=== PATIENT | male | born 1960 | race African-American/Black ===

== ENCOUNTER 2017-05-02 22:19 | Emergency (ER) | payer OTHER ==
[2017-05-02] MEDS: IBUPROFEN 600 MG TABLET. PO ×2 (22:53)
[2017-05-02] MEDS: CYCLOBENZAPRINE 10 MG TABLET. PO ×2 (22:53)
== END 2017-05-02 23:51 | disposition home or self-care (01) ==
LOC: ER 22:19
DX: S39.012A Strain of muscle, fascia and tendon of lower back, initial encounter (principal); G89.29 Other chronic pain; M19.90 Unspecified osteoarthritis, unspecified site; I10 Essential (primary) hypertension; X58.XXXA Exposure to other specified factors, initial encounter; Y93.89 Activity, other specified; Y92.89 Other specified places as the place of occurrence of the external cause; Y99.8 Other external cause status
CPT/HCPCS: 72100; 99284

== ENCOUNTER 2017-11-27 17:08 | Emergency (ER) | payer OTHER ==
[~2017-11-27] VITALS: Ht 162.6 cm; Wt 74.8 kg
[~2017-11-27 17:08] MED LIST: CYCL10TA2 PO; HYDR25TA9; IBUP-1007 PO; LISI20TA
[2017-11-27 17:42] VITALS: BP 116/69
[2017-11-27] MEDS ORDERED: KETOROLAC 60 MG/2 ML INJ. IM ONE (18:00)
--- NOTE | 2017-11-27 18:05 | PHYS DOC ---
Past Medical History Past Medical History: Arthritis, Hypertension Additional Past Medical Histor: chronic shoulder pain Past Surgical History: No Surgical History Alcohol Use: Occasionally Drug Use: None Adult General Chief Complaint Chief Complaint: BACK PAIN OR INJURY HPI HPI Patient is a 57 year old male who presents with chronic back pain. The patient is also intoxicated. He states that is been having so much pain that he cannot sleep at night. The patient was sound asleep when I went into the room and I had to wake him up. Does admit to drinking alcohol today. I explained to him that I cannot give him narcotic pain medication since he is intoxicated. He states that he does understand. He states that he has Flexeril at home is been taking that with no relief. Patient denies spontaneous loss of bowel or bladder , saddle numbness or foot drop. Review of Systems Review of Systems Constitutional: Denies fever or chills [] Eyes: Denies change in visual acuity, redness, or eye pain [] HENT: Denies nasal congestion or sore throat [] Respiratory: Denies cough or shortness of breath [] Cardiovascular: No additional information not addressed in HPI [] GI: Denies abdominal pain, nausea, vomiting, bloody stools or diarrhea [] : Denies dysuria or hematuria [] Musculoskeletal: See history of present illness Integument: Denies rash or skin lesions [] Neurologic: Denies headache, focal weakness or sensory changes [] Endocrine: Denies polyuria or polydipsia [] All other systems were reviewed and found to be within normal limits, except as documented in this note. Current Medications Current Medications Current Medications Medications (Trade) Dose Ordered Sig/[facility] Start Time Stop Time Status Last Admin Dose Admin Ketorolac Tromethamine (Toradol Im) 60 mg 1X ONCE 11/27/17 18:00 11/27/17 18:01 11/27/17 17:59 60 MG Allergies Allergies Allergies Coded Allergies Type Severity Reaction Last Updated Verified No Known Drug Allergies 06/06/13 No Physical Exam Physical Exam Constitutional: Well developed, well nourished, no acute distress, non-toxic appearance. [] HENT: Normocephalic, atraumatic, bilateral external ears normal, oropharynx moist, no oral exudates, nose normal. [] Eyes: PERRLA, EOMI, conjunctiva normal, no discharge. [] Neck: Normal range of motion, no tenderness, supple, no stridor. [] Cardiovascular:Heart rate regular rhythm, no murmur [] Lungs & Thorax: Bilateral breath sounds clear to auscultation [] Abdomen: Bowel sounds normal, soft, no tenderness, no masses, no pulsatile masses. [] Skin: Warm, dry, no erythema, no rash. [] Back: No point spinal tenderness, step-offs or deformities noted, no CVA tenderness. [] Extremities: No tenderness, no cyanosis, no clubbing, ROM intact, no edema. [] Neurologic: Alert and oriented X 3, normal motor function, normal sensory function, no focal deficits noted. [] Psychologic: Affect normal, judgement normal, mood normal. [] Current Patient Data Vital Signs Vital Signs Date Time Temp Pulse Resp B/P (MAP) Pulse Ox O2 Delivery O2 Flow Rate FiO2 11/27/17 17:10 98.9 103 20 126/78 (94) 97 Room Air 98.9 EKG EKG [] Radiology/Procedures Radiology/Procedures [] Course & Med Decision Making Course & Med Decision Making Pertinent Labs and Imaging studies reviewed. (See chart for details) The patient was given a dose of Toradol in the emergency department. Dragon Disclaimer Dragon Disclaimer This electronic medical record was generated, in whole or in part, using a voice recognition dictation system. Departure Departure Impression: Primary Impression: Chronic back pain Additional Impression: Alcohol intoxication Disposition: 01 HOME, SELF-CARE Condition: STABLE Referrals: JUDY HOOKS MD (PCP) Patient Instructions: Alcohol Intoxication, Chronic Back Pain Additional Instructions: You may resume your at home pain medications after you are sober. Do not drive or operate a vehicle while you are intoxicated. Follow-up with your primary care provider for further evaluation and treatment of your chronic back pain. If worsening please return to the emergency department. Problem Qualifiers COLEEN ROSS APRN Nov 27, 2017 18:05
== END 2017-11-27 18:20 | disposition home or self-care (01) ==
LOC: ER 17:08
DX: G89.29 Other chronic pain (principal); M54.9 Dorsalgia, unspecified; F10.129 Alcohol abuse with intoxication, unspecified; Y90.9 Presence of alcohol in blood, level not specified; I10 Essential (primary) hypertension
CPT/HCPCS: 96372; 99284; J1885

== ENCOUNTER 2018-04-22 14:47 | Emergency (ER) | payer OTHER ==
[~2018-04-22] VITALS: Ht 162.6 cm; Wt 74.8 kg
[~2018-04-22 14:47] MED LIST changes: +HYDR-2145; -HYDR25TA9
[2018-04-22 14:54] VITALS: BP 140/90
[2018-04-22 15:16] LABS: BILIRUBIN,URINE NEGATIVE (NEG); CLARITY,URINE CLEAR; COLOR,URINE YELLOW; NITRITE,URINE NEGATIVE (NEG); PH,URINE 5.5; PROTEIN,URINE NEGATIVE (NEG-TRACE); UROBILINOGEN,URINE 0.2 mg/dL (0.2 mg/dL)
[2018-04-22 15:21] LABS: BACTERIA,URINE 0 /HPF (0-FEW); RBC,URINE 0 /HPF (0-2); SQUAMOUS EPITHELIAL CELL,UR FEW /LPF; WBC,URINE 0 /HPF (0-4)
--- NOTE | 2018-04-22 15:54 | RAD ---
Indication: Suprapubic pain, worse with coughing TECHNIQUE: Ultrasound of the suprapubic soft tissue and pelvis. COMPARISON: None FINDINGS: The prostate gland measures 3.9 x 3.3 x 3.9 cm and is unenlarged. Bladder is decompressed limiting optimal evaluation. No apparent pelvic wall defects seen. IMPRESSION: No sonographic abnormality seen in the suprapubic soft tissue or in the bilateral groin. Electronically signed by: Donald Benz DO (04/22/2018 3:49 PM) [id number]
--- NOTE | 2018-04-22 16:01 | PHYS DOC ---
Past Medical History Past Medical History: Arthritis, Hypertension Additional Past Medical Histor: chronic shoulder pain Past Surgical History: No Surgical History Alcohol Use: Occasionally Drug Use: None Adult General Chief Complaint Chief Complaint: GROIN PAIN [facility] HPI Patient is a 58 year old male who presents with a complaint of groin pain x 5 days. He states it hurts worse when he moves. He denies testicular pain, pain in his penis or scrotum or dysuria. He denies possibility of STI. He smeels very strongly of ETOH and admits to drinking 3 beers before he came to the ED. Review of Systems Review of Systems Constitutional: Denies fever or chills [] Respiratory: Denies cough or shortness of breath [] Cardiovascular: No additional information not addressed in HPI [] GI: Denies abdominal pain, nausea, vomiting, bloody stools or diarrhea [] : See HPI Musculoskeletal: Denies back pain or joint pain [] Integument: Denies rash or skin lesions [] Neurologic: Denies headache, focal weakness or sensory changes [] Endocrine: Denies polyuria or polydipsia [] All other systems were reviewed and found to be within normal limits, except as documented in this note. Allergies Allergies Allergies Coded Allergies Type Severity Reaction Last Updated Verified No Known Drug Allergies 06/06/13 No Physical Exam Physical Exam Constitutional: Well developed, well nourished, no acute distress, non-toxic appearance. [] Cardiovascular:Heart rate regular rhythm, no murmur [] Lungs & Thorax: Bilateral breath sounds clear to auscultation [] Abdomen: Bowel sounds normal, soft, tenderness to groin with palpation, no enlarged nodes, no erythema, no masses, no pulsatile masses. [] Skin: Warm, dry, no erythema, no rash. [] Neurologic: Alert and oriented X 3, normal motor function, normal sensory function, no focal deficits noted. [] Psychologic: Affect normal, judgement normal, mood normal. [] Current Patient Data Vital Signs Lab Values Laboratory Tests Test 04/22/18 15:00 Urine Collection Type Unknown Urine Color Yellow Urine Clarity Clear Urine pH 5.5 Urine Specific [place] 1.015 Urine Protein Negative mg/dL (NEG-TRACE) Urine Glucose (UA) Negative mg/dL (NEG) Urine Ketones (Stick) Negative mg/dL (NEG) Urine Blood Negative (NEG) Urine Nitrite Negative (NEG) Urine Bilirubin Negative (NEG) Urine Urobilinogen Dipstick 0.2 mg/dL (0.2 mg/dL) Urine Leukocyte Esterase Negative (NEG) Urine RBC 0 /HPF (0-2) Urine WBC 0 /HPF (0-4) Urine Squamous Epithelial Cells Few /LPF Urine Bacteria 0 /HPF (0-FEW) Urine Mucus Slight /LPF Urine Chlamydia DNA (PCR) Negative (Negative) Neisseria gonorrhoeae DNA (PCR) Negative (Negative) EKG EKG [] Radiology/Procedures Radiology/Procedures [][facility] [address] [place] [address] IMAGING REPORT Signed PATIENT: ERIN MARIN ACCOUNT: [id number] : 1960 LOCATION: ER AGE: 58 SEX: M EXAM STATUS: REG ER ORD. PHYSICIAN: COLEEN ROSS APRN REASON: SUPRAPUBIC PAIN, WORSE WITH COUGHING PROCEDURE: PELVIS ULTRASOUND Indication: Suprapubic pain, worse with coughing TECHNIQUE: Ultrasound of the suprapubic soft tissue and pelvis. COMPARISON: None FINDINGS: The prostate gland measures 3.9 x 3.3 x 3.9 cm and is unenlarged. Bladder is decompressed limiting optimal evaluation. No apparent pelvic wall defects seen. IMPRESSION: No sonographic abnormality seen in the suprapubic soft tissue or in the bilateral groin. Electronically signed by: Donald Benz DO (04/22/2018 3:49 PM) [id number] DICTATED and SIGNED BY: DONALD BENZ DO DATE: 04/22/18 1548 Course & Med Decision Making Course & Med Decision Making Pertinent Labs and Imaging studies reviewed. (See chart for details) [] Dragon Disclaimer Dragon Disclaimer This electronic medical record was generated, in whole or in part, using a voice recognition dictation system. Departure Departure Impression: Primary Impression: Groin strain Disposition: 01 HOME, SELF-CARE Condition: STABLE Referrals: JUDY HOOKS MD (PCP) Patient Instructions: Groin Strain Additional Instructions: Follow-up with your primary care provider in 3 days if not improving or return to the emergency department if worsening. You may take ibuprofen or Tylenol for pain. COLEEN ROSS APRN Apr 22, 2018 16:01
== END 2018-04-22 16:20 | disposition home or self-care (01) ==
LOC: ER 14:47
DX: S39.011A Strain of muscle, fascia and tendon of abdomen, initial encounter (principal); I10 Essential (primary) hypertension; G89.29 Other chronic pain; X58.XXXA Exposure to other specified factors, initial encounter; Y93.89 Activity, other specified; Y92.89 Other specified places as the place of occurrence of the external cause; Y99.8 Other external cause status
CPT/HCPCS: 76856; 81001; 87491; 87591; 99284-25

== ENCOUNTER 2018-05-13 07:35 | Emergency (ER) | payer OTHER ==
[~2018-05-13] VITALS: Ht 162.6 cm; Wt 74.4 kg
[2018-05-13] MEDS ORDERED: methylPREDNISolone SOD SUCC PF 125 MG/2 ML VIAL. IV ONE (08:15)
[2018-05-13] MEDS ORDERED: AMPICILLIN/SULBACTAM 3 GM in IV NORMAL SALINE 100ML 100 ML IV ONE (08:30)
[2018-05-13 08:32] LABS: BASO # 0.1 x10^3/uL (0.0-0.2); BASO % 1 % (0-3); EOS # 0.1 x10^3/uL (0.0-0.7); EOS % 2 % (0-3); HEMATOCRIT 41.7 % (39.0-53.0); HEMOGLOBIN 14.1 g/dL (13.0-17.5); LYMPH # 1.7 x10^3/uL (1.0-4.8); LYMPH % 17 % (24-48); MEAN CORPUSCULAR HEMOGLOBIN 32 pg (25-35); MEAN CORPUSCULAR HGB CONC 34 g/dL (31-37); MEAN CORPUSCULAR VOLUME 96 fL (79-100); MONO # 0.8 x10^3/uL (0.0-1.1); MONO % 8 % (0-9); NEUT # 7.2 x10^3uL (1.8-7.7); NEUT % 72 % (31-73); PLATELET COUNT 202 x10^3/uL (140-400); RED BLOOD COUNT 4.36 x10^6/uL (4.30-5.70); RED CELL DISTRIBUTION WIDTH 12.9 % (11.5-14.5)
[2018-05-13 08:34] LABS: GFR 93.5; POTASSIUM 3.1 mmol/L (3.5-5.1)
[2018-05-13] MEDS ORDERED: IOHEXOL 300 MG/ML 100ML VIAL. IV ONE (09:00)
[2018-05-13] MEDS ORDERED: CONTRAST GIVEN. MC PRN (09:00)
--- NOTE | 2018-05-13 09:25 | PHYS DOC ---
Past Medical History Past Medical History: Arthritis, Hypertension Additional Past Medical Histor: chronic shoulder pain Past Surgical History: No Surgical History Alcohol Use: Occasionally Drug Use: None Adult General Chief Complaint Chief Complaint: SORE THROAT HPI HPI Patient is a 58 year old male presented to ER today for evaluation of sore throat, right ear pain for about 4 days. Patient denies headache, no fever. Patient denies any chest pain, no trouble breathing. Patient had no trouble opening or close his mouth. Review of Systems Review of Systems Constitutional: Denies fever or chills [] Eyes: Denies change in visual acuity, redness, or eye pain [] HENT: Positive for sorethroat and right ear pain Respiratory: Denies cough or shortness of breath [] Cardiovascular: No additional information not addressed in HPI [] GI: Denies abdominal pain, nausea, vomiting, bloody stools or diarrhea [] : Denies dysuria or hematuria [] Musculoskeletal: Denies back pain or joint pain [] Integument: Denies rash or skin lesions [] Neurologic: Denies headache, focal weakness or sensory changes [] Endocrine: Denies polyuria or polydipsia [] All other systems were reviewed and found to be within normal limits, except as documented in this note. Current Medications Current Medications Current Medications Medications (Trade) Dose Ordered Sig/[facility] Start Time Stop Time Status Last Admin Dose Admin Ampicillin Sodium/ Sulbactam Sodium 3 gm/Sodium Chloride 100 ml @ 200 mls/hr 1X ONCE 05/13/18 08:30 05/13/18 09:00 DC 05/13/18 08:55 200 MLS/HR Info (CONTRAST GIVEN -- Rx MONITORING) 1 each PRN DAILY PRN 05/13/18 09:00 05/15/18 08:59 Iohexol (Omnipaque 300 Mg/ml) 70 ml 1X ONCE 05/13/18 09:00 05/13/18 09:01 DC 05/13/18 09:09 70 ML Ketorolac Tromethamine (Toradol 30mg Vial) 30 mg 1X ONCE 05/13/18 09:30 05/13/18 09:31 DC 05/13/18 09:33 30 MG Methylprednisolone Sodium Succinate (SOLU-Medrol 125MG VIAL) 125 mg 1X ONCE 05/13/18 08:15 05/13/18 08:16 DC 05/13/18 08:51 125 MG Allergies Allergies Allergies Coded Allergies Type Severity Reaction Last Updated Verified No Known Drug Allergies 06/06/13 No Physical Exam Physical Exam Constitutional: Well developed, well nourished, no acute distress, non-toxic appearance. [] HENT: Normocephalic, atraumatic, right side tonsillar swelling and erythema. NO TRISMUS. Eyes: PERRLA, EOMI, conjunctiva normal, no discharge. [] Neck: Normal range of motion, no tenderness, supple, no stridor. [] Cardiovascular:Heart rate regular rhythm, no murmur [] Lungs & Thorax: Bilateral breath sounds clear to auscultation [] Abdomen: Bowel sounds normal, soft, no tenderness, no masses, no pulsatile masses. [] Skin: Warm, dry, no erythema, no rash. [] Back: No tenderness, no CVA tenderness. [] Extremities: No tenderness, no cyanosis, no clubbing, ROM intact, no edema. [] Neurologic: Alert and oriented X 3, normal motor function, normal sensory function, no focal deficits noted. [] Psychologic: Affect normal, judgement normal, mood normal. [] Current Patient Data Vital Signs Vital Signs Date Time Temp Pulse Resp B/P (MAP) Pulse Ox O2 Delivery O2 Flow Rate FiO2 05/13/18 09:31 82 14 141/88 (105) 96 Room Air 05/13/18 07:37 98.6 98.6 Lab Values Laboratory Tests Test 05/13/18 08:11 05/13/18 08:35 White Blood Count 10.0 x10^3/uL (4.0-11.0) Red Blood Count 4.36 x10^6/uL (4.30-5.70) Hemoglobin 14.1 g/dL (13.0-17.5) Hematocrit 41.7 % (39.0-53.0) Mean Corpuscular Volume 96 fL (79-100) Mean Corpuscular Hemoglobin 32 pg (25-35) Mean Corpuscular Hemoglobin Concent 34 g/dL (31-37) Red Cell Distribution Width 12.9 % (11.5-14.5) Platelet Count 202 x10^3/uL (140-400) Neutrophils (%) (Auto) 72 % (31-73) Lymphocytes (%) (Auto) 17 % (24-48) L Monocytes (%) (Auto) 8 % (0-9) Eosinophils (%) (Auto) 2 % (0-3) Basophils (%) (Auto) 1 % (0-3) Neutrophils # (Auto) 7.2 x10^3uL (1.8-7.7) Lymphocytes # (Auto) 1.7 x10^3/uL (1.0-4.8) Monocytes # (Auto) 0.8 x10^3/uL (0.0-1.1) Eosinophils # (Auto) 0.1 x10^3/uL (0.0-0.7) Basophils # (Auto) 0.1 x10^3/uL (0.0-0.2) Prothrombin Time 14.0 SEC (11.7-14.0) Prothrombin Time INR 1.1 (0.8-1.1) PTT 35 SEC (24-38) Sodium Level 137 mmol/L (136-145) Potassium Level 3.1 mmol/L (3.5-5.1) L Chloride Level 97 mmol/L (98-107) L Carbon Dioxide Level 29 mmol/L (21-32) Anion Gap 11 (6-14) Blood Urea Nitrogen 16 mg/dL (8-26) Creatinine 1.0 mg/dL (0.7-1.3) Estimated GFR (Cockcroft-Gault) 93.5 Glucose Level 131 mg/dL (70-99) H Calcium Level 9.0 mg/dL (8.5-10.1) Group A Streptococcus Rapid Negative (NEGATIVE) Laboratory Tests 05/13/18 08:11 Laboratory Tests 05/13/18 08:11 EKG EKG [] Radiology/Procedures Radiology/Procedures [][facility] [address] [place], [place] [id number] IMAGING REPORT Signed PATIENT: ERIN MARIN ACCOUNT: [id number] : 1960 LOCATION: ER AGE: 58 SEX: M EXAM STATUS: REG ER ORD. PHYSICIAN: CORONA GHOSH DO REASON: SORETHROAT, RIGHT SIDE NECK SWELLING, EVALUATION FOR PERITONSILLAR ABSCESS PROCEDURE: CT SOFT TISSUE NECK W/CONTRAST CT SOFT TISSUE NECK W/CONTRAST Indication: Sore throat, right-sided neck swelling Technique: Postcontrast CT imaging was performed of the neck, multiplanar reconstruction images submitted. One or more of the following individualized dose reduction techniques were utilized for this examination: 1. Automated exposure control 2. Adjustment of the mA and/or kV according to patient size 3. Use of iterative reconstruction technique. Comparison: None Findings: There is enlargement and heterogeneity of the right palatine tonsil. As best seen on axial image 60, there is also an associated approximate 1.1 cm transverse by 0.7 cm AP by 1.2 cm CC hypodense collection of right tonsil with internal fluid density of 16 Hounsfield units with some surrounding mild enhancement, overall evidence of abscess. There is also a tiny pocket of fluid just inferiorly about 0.2-0.3 cm as seen on images 56 series 2. Overall area of heterogeneous enlargement measures about 2.1 cm transverse by 2.2 cm AP by 2.6 cm cc. Airway is narrowed at level of tonsillar enlargement. Parapharyngeal fat planes are maintained. There are some nonspecific nodes, largest right level 2 node about 1 cm short axis dimension. Right submandibular gland is relatively larger than the left although no associated focal fluid collection. There is right submandibular node about 0.8 cm short axis dimension. No focal abnormality is identified of the thyroid gland. There is emphysema of the visualized lung apices. There is a nonspecific nodule about 0.87 to 0.8 cm in size underlying the skin of the right facial soft tissues axial image 68 series 2. There is multilevel cervical degenerative disc disease greatest C3-4, C5-6, C6-7 with spondylosis at the same levels. There is likely central canal stenosis C3-4 about 7 to 8 mm, to lesser degree at C4-5 and C5-C6. There is facet and uncovertebral degenerative change contributing to neural foramina compromise greatest bilaterally at C3-4 and C6-7 and on the left at C5-C6. IMPRESSION: 1. There is right palatine tonsillar enlargement also with associated peritonsillar abscess, central fluid about 1.1 cm greatest dimension and probable tiny pocket of fluid just inferiorly. There is narrowing of the airway at the level of tonsillar enlargement. Findings are probably on infectious basis assuming history of infection. If there are not findings suggestive of infection, cystic/necrotic mass is included in the differential considerations. 2. There is emphysema visualized lung apices. 3. There is nonspecific nodule underlying the skin surface of right facial soft tissues, cannot otherwise accurately characterize although presumably would be palpable or visible for which clinical evaluation advised. 4. There is multilevel cervical degenerative disc disease and spondylosis, also spinal stenosis greatest C3-4. There is multilevel cervical neural foramina compromise due to facet and uncovertebral degenerative change. Electronically signed by: Sue Camacho MD (05/13/2018 9:44 AM) [id number] DICTATED and SIGNED BY: SUE CAMACHO MD DATE: 05/13/18 0929 Course & Med Decision Making Course & Med Decision Making Pertinent Labs and Imaging studies reviewed. (See chart for details) Patient was found to have peritonsillar abscess on right side. There is no ENT coverage at this facility today. Patient requested to be transferred to . Dr. Corey E[facility] AT accepted patient for transfer to ER for evaluation. Dragmillicent Disclaimer Dragmillicent Disclaimer This electronic medical record was generated, in whole or in part, using a voice recognition dictation system. Departure Departure Impression: Primary Impression: Peritonsillar abscess Disposition: 05 TRANSFER OTHER (Transfer to [facility]) Condition: STABLE Referrals: JUDY HOOKS MD (PCP) CORONA GHOSH DO May 13, 2018 09:24
[2018-05-13] MEDS ORDERED: KETOROLAC 30 MG/ML VIAL. IV ONE (09:30)
--- NOTE | 2018-05-13 09:47 | RAD ---
CT SOFT TISSUE NECK W/CONTRAST Indication: Sore throat, right-sided neck swelling Technique: Postcontrast CT imaging was performed of the neck, multiplanar reconstruction images submitted. One or more of the following individualized dose reduction techniques were utilized for this examination: 1. Automated exposure control 2. Adjustment of the mA and/or kV according to patient size 3. Use of iterative reconstruction technique. Comparison: None Findings: There is enlargement and heterogeneity of the right palatine tonsil. As best seen on axial image 60, there is also an associated approximate 1.1 cm transverse by 0.7 cm AP by 1.2 cm CC hypodense collection of right tonsil with internal fluid density of 16 Hounsfield units with some surrounding mild enhancement, overall evidence of abscess. There is also a tiny pocket of fluid just inferiorly about 0.2-0.3 cm as seen on images 56 series 2. Overall area of heterogeneous enlargement measures about 2.1 cm transverse by 2.2 cm AP by 2.6 cm cc. Airway is narrowed at level of tonsillar enlargement. Parapharyngeal fat planes are maintained. There are some nonspecific nodes, largest right level 2 node about 1 cm short axis dimension. Right submandibular gland is relatively larger than the left although no associated focal fluid collection. There is right submandibular node about 0.8 cm short axis dimension. No focal abnormality is identified of the thyroid gland. There is emphysema of the visualized lung apices. There is a nonspecific nodule about 0.87 to 0.8 cm in size underlying the skin of the right facial soft tissues axial image 68 series 2. There is multilevel cervical degenerative disc disease greatest C3-4, C5-6, C6-7 with spondylosis at the same levels. There is likely central canal stenosis C3-4 about 7 to 8 mm, to lesser degree at C4-5 and C5-C6. There is facet and uncovertebral degenerative change contributing to neural foramina compromise greatest bilaterally at C3-4 and C6-7 and on the left at C5-C6. IMPRESSION: 1. There is right palatine tonsillar enlargement also with associated peritonsillar abscess, central fluid about 1.1 cm greatest dimension and probable tiny pocket of fluid just inferiorly. There is narrowing of the airway at the level of tonsillar enlargement. Findings are probably on infectious basis assuming history of infection. If there are not findings suggestive of infection, cystic/necrotic mass is included in the differential considerations. 2. There is emphysema visualized lung apices. 3. There is nonspecific nodule underlying the skin surface of right facial soft tissues, cannot otherwise accurately characterize although presumably would be palpable or visible for which clinical evaluation advised. 4. There is multilevel cervical degenerative disc disease and spondylosis, also spinal stenosis greatest C3-4. There is multilevel cervical neural foramina compromise due to facet and uncovertebral degenerative change. Electronically signed by: Ariel Cline MD (05/13/2018 9:44 AM) [id number]
[2018-05-13 11:13] VITALS: BP 162/95
--- NOTE | 2018-05-22 15:38 | NUR ---
Late entry made to Medical Record. IV Stop time transcribed from eMAR to IV spreadsheet
== END 2018-05-13 11:28 | disposition short-term general hospital (02) ==
LOC: ER 07:35
DX: J36 Peritonsillar abscess (principal); H92.01 Otalgia, right ear; I10 Essential (primary) hypertension
CPT/HCPCS: 36415; 70491; 80048; 85025; 85610; 85730; 87070; 87880; 96365; 96375; 99285; J0295; J1885; J2930; Q9967

== ENCOUNTER → 2018-06-06 | Outpatient (CLI) | payer OTHER ==
[2018-05-13 11:13] VITALS: BP 162/95
--- NOTE | 2018-06-06 14:11 | RAD ---
Indication: Cervicalgia and low back pain TECHNIQUE: Multiple views of the cervical spine and 3 views of the lumbar spine COMPARISON: None FINDINGS: Cervical spine: The atlantoaxial joint or is preserved. Loss of normal cervical lordosis is seen which may be secondary to muscle spasm or positioning. No compression deformities. Multilevel intervertebral disc space narrowing is seen with endplate sclerosis and osteophyte formation. Facet joints are in normal anatomic alignment. Prevertebral soft tissues within normal limits. Visualized lung apices are clear. Lumbar spine: There is mild straightening of the normal lumbar lordosis. This could be due to muscle spasm or positioning. There are 5 lumbar type vertebral bodies. No compression deformities. Mild endplate sclerosis is seen without significant intervertebral disc space narrowing. SI joints within normal limits. IMPRESSION: 1. Multilevel mild to moderate degenerative disc disease in the cervical spine. 2. Minimal degenerative disease in the lumbar spine. Electronically signed by: Donald Benz DO (06/06/2018 2:07 PM) [facility]
== END | disposition home or self-care (01) ==
LOC: RAD 10:31
PROVIDERS: ATTEND Pediatrics
DX: M50.30 Other cervical disc degeneration, unspecified cervical region (principal); M51.36 Other intervertebral disc degeneration, lumbar region; M25.78 Osteophyte, vertebrae; M48.02 Spinal stenosis, cervical region
CPT/HCPCS: 72040; 72100

== ENCOUNTER 2018-09-24 21:51 | Emergency (ER) | payer OTHER ==
[~2018-09-24] VITALS: Ht 152.4 cm; Wt 74.4 kg
[2018-09-24 22:00] VITALS: BP 135/82
[2018-09-24 23:09] LABS: BASO # 0.1 x10^3/uL (0.0-0.2); BASO % 1 % (0-3); EOS # 0.2 x10^3/uL (0.0-0.7); EOS % 2 % (0-3); HEMATOCRIT 41.1 % (39.0-53.0); HEMOGLOBIN 14.5 g/dL (13.0-17.5); LYMPH # 3.5 x10^3/uL (1.0-4.8); LYMPH % 40 % (24-48); MEAN CORPUSCULAR HEMOGLOBIN 34 pg (25-35); MEAN CORPUSCULAR HGB CONC 35 g/dL (31-37); MEAN CORPUSCULAR VOLUME 97 fL (79-100); MONO # 0.6 x10^3/uL (0.0-1.1); MONO % 7 % (0-9); NEUT # 4.4 x10^3uL (1.8-7.7); NEUT % 50 % (31-73); PLATELET COUNT 259 x10^3/uL (140-400); RED BLOOD COUNT 4.26 x10^6/uL (4.30-5.70); RED CELL DISTRIBUTION WIDTH 13.5 % (11.5-14.5); WHITE BLOOD COUNT 8.8 x10^3/uL (4.0-11.0)
[2018-09-24 23:12] LABS: BILIRUBIN,URINE NEGATIVE (NEG); CLARITY,URINE CLEAR; COLOR,URINE YELLOW; NITRITE,URINE NEGATIVE (NEG); PH,URINE 5.5; PROTEIN,URINE NEGATIVE (NEG-TRACE); UROBILINOGEN,URINE 0.2 mg/dL (0.2 mg/dL)
[2018-09-24 23:17] LABS: BARBITURATES NEG (NEG); BENZODIAZEPINES NEG (NEG); CANNABINOIDS NEG (NEG); COCAINE NEG (NEG); METHADONE NEG (NEG); OPIATES NEG (NEG); PHENCYCLIDINE NEG (NEG)
[2018-09-24 23:21] LABS: BACTERIA,URINE 0 /HPF (0-FEW); RBC,URINE 0 /HPF (0-2); SQUAMOUS EPITHELIAL CELL,UR OCC /LPF; WBC,URINE OCC /HPF (0-4)
[2018-09-24 23:22] LABS: HYALINE CASTS, URINE OCCASIONAL /HPF
[2018-09-24 23:23] LABS: AMPHETAMINE/METHAMPHETAMINE NEG (NEG)
[2018-09-24 23:36] LABS: ALBUMIN 3.3 g/dL (3.4-5.0); ALBUMIN/GLOBULIN RATIO 0.8 (1.0-1.7); CREATININE 1.1 mg/dL (0.7-1.3); GFR 83.8; MAGNESIUM 2.1 mg/dL (1.8-2.4); TOTAL BILIRUBIN 0.6 mg/dL (0.2-1.0); TOTAL PROTEIN 7.3 g/dL (6.4-8.2)
[2018-09-24 23:42] LABS: POTASSIUM 2.9 mmol/L (3.5-5.1)
--- NOTE | 2018-09-24 23:49 | RAD ---
AP chest. HISTORY: Syncopal episode AP view was taken of the chest. Patient's taken a poor inspiration. Heart is normal in size. There is no pleural effusion. IMPRESSION: 1. No acute infiltrates. 2. Poor inspiration. Electronically signed by: Willard Palacios MD (09/24/2018 11:46 PM) [facility]
--- NOTE | 2018-09-25 00:05 | RAD ---
CT brain without contrast, CT cervical spine without contrast. HISTORY: Syncopal episode. CT scan of brain was done without contrast. There is no intracranial hemorrhage or subdural hematoma. Ventricles are normal in size. There is no mass or shift of the midline. An acute CVA is not identified. There is no skull fracture. Sinuses are clear. IMPRESSION: 1. No intracranial hemorrhage or acute finding noted. End impression CT cervical spine Axial CT images were obtained to the cervical spine. Sagittal and coronal reconstructed images were reviewed. Thyroid is homogeneous. There is mild atelectasis or infiltrates in the right upper lobe. An acute C-spine fracture is not identified. There are degenerative changes at multiple levels. There is facet arthritis in the upper cervical spine on the right. There is spurring and disc space narrowing at C3-4, C5-6 and C6-7. IMPRESSION: 1. Degenerative changes in the cervical spine. 2. No acute fracture. 3. Right upper lobe infiltrate. PQRS Compliance Statement: One or more of the following individualized dose reduction techniques were utilized for this examination: 1. Automated exposure control 2. Adjustment of the mA and/or kV according to patient size 3. Use of iterative reconstruction technique Electronically signed by: Willard Palacios MD (09/25/2018 12:02 AM) [facility]
--- NOTE | 2018-09-25 00:25 | PHYS DOC ---
Past Medical History Past Medical History: Arthritis, Hypertension Additional Past Medical Histor: chronic shoulder pain Past Surgical History: No Surgical History Alcohol Use: Occasionally Drug Use: None Adult General Chief Complaint Chief Complaint: SYNCOPE HPI HPI Patient is a 58 year old [f__sex] who presents with [] Review of Systems Review of Systems Constitutional: Denies fever or chills [] Eyes: Denies change in visual acuity, redness, or eye pain [] HENT: Denies nasal congestion or sore throat [] Respiratory: Denies cough or shortness of breath [] Cardiovascular: No additional information not addressed in HPI [] GI: Denies abdominal pain, nausea, vomiting, bloody stools or diarrhea [] : Denies dysuria or hematuria [] Musculoskeletal: Denies back pain or joint pain [] Integument: Denies rash or skin lesions [] Neurologic: Denies headache, focal weakness or sensory changes [] Endocrine: Denies polyuria or polydipsia [] All other systems were reviewed and found to be within normal limits, except as documented in this note. Allergies Allergies Allergies Coded Allergies Type Severity Reaction Last Updated Verified No Known Drug Allergies 06/06/13 No Physical Exam Physical Exam Constitutional: Well developed, well nourished, no acute distress, non-toxic appearance. [] HENT: Normocephalic, atraumatic, bilateral external ears normal, oropharynx moist, no oral exudates, nose normal. [] Eyes: PERRLA, EOMI, conjunctiva normal, no discharge. [] Neck: Normal range of motion, no tenderness, supple, no stridor. [] Cardiovascular:Heart rate regular rhythm, no murmur [] Lungs & Thorax: Bilateral breath sounds clear to auscultation [] Abdomen: Bowel sounds normal, soft, no tenderness, no masses, no pulsatile masses. [] Skin: Warm, dry, no erythema, no rash. [] Back: No tenderness, no CVA tenderness. [] Extremities: No tenderness, no cyanosis, no clubbing, ROM intact, no edema. [] Neurologic: Alert and oriented X 3, normal motor function, normal sensory function, no focal deficits noted. [] Psychologic: Affect normal, judgement normal, mood normal. [] Current Patient Data Vital Signs Vital Signs Date Time Temp Pulse Resp B/P (MAP) Pulse Ox O2 Delivery O2 Flow Rate FiO2 7/9/19 22:00 98.6 100 16 135/82 (99) 100 Room Air 98.6 Lab Values Laboratory Tests Test 09/24/18 22:10 09/24/18 23:00 White Blood Count 8.8 x10^3/uL (4.0-11.0) Red Blood Count 4.26 x10^6/uL (4.30-5.70) L Hemoglobin 14.5 g/dL (13.0-17.5) Hematocrit 41.1 % (39.0-53.0) Mean Corpuscular Volume 97 fL (79-100) Mean Corpuscular Hemoglobin 34 pg (25-35) Mean Corpuscular Hemoglobin Concent 35 g/dL (31-37) Red Cell Distribution Width 13.5 % (11.5-14.5) Platelet Count 259 x10^3/uL (140-400) Neutrophils (%) (Auto) 50 % (31-73) Lymphocytes (%) (Auto) 40 % (24-48) Monocytes (%) (Auto) 7 % (0-9) Eosinophils (%) (Auto) 2 % (0-3) Basophils (%) (Auto) 1 % (0-3) Neutrophils # (Auto) 4.4 x10^3uL (1.8-7.7) Lymphocytes # (Auto) 3.5 x10^3/uL (1.0-4.8) Monocytes # (Auto) 0.6 x10^3/uL (0.0-1.1) Eosinophils # (Auto) 0.2 x10^3/uL (0.0-0.7) Basophils # (Auto) 0.1 x10^3/uL (0.0-0.2) Sodium Level 141 mmol/L (136-145) Potassium Level 2.9 mmol/L (3.5-5.1) *L Chloride Level 101 mmol/L (98-107) Carbon Dioxide Level 24 mmol/L (21-32) Anion Gap 16 (6-14) H Blood Urea Nitrogen 26 mg/dL (8-26) Creatinine 1.1 mg/dL (0.7-1.3) Estimated GFR (Cockcroft-Gault) 83.8 BUN/Creatinine Ratio 24 (6-20) H Glucose Level 95 mg/dL (70-99) Calcium Level 9.0 mg/dL (8.5-10.1) Magnesium Level 2.1 mg/dL (1.8-2.4) Total Bilirubin 0.6 mg/dL (0.2-1.0) Aspartate Amino Transferase (AST) 65 U/L (15-37) H Alanine Aminotransferase (ALT) 73 U/L (16-63) H Alkaline Phosphatase 105 U/L (46-116) Troponin I Quantitative < 0.017 ng/mL (0.000-0.055) Total Protein 7.3 g/dL (6.4-8.2) Albumin 3.3 g/dL (3.4-5.0) L Albumin/Globulin Ratio 0.8 (1.0-1.7) L Ethyl Alcohol Level 352 mg/dL (0-10) H Urine Color Yellow Urine Clarity Clear Urine pH 5.5 Urine Specific [place] 1.010 Urine Protein Negative mg/dL (NEG-TRACE) Urine Glucose (UA) Negative mg/dL (NEG) Urine Ketones (Stick) Negative mg/dL (NEG) Urine Blood Negative (NEG) Urine Nitrite Negative (NEG) Urine Bilirubin Negative (NEG) Urine Urobilinogen Dipstick 0.2 mg/dL (0.2 mg/dL) Urine Leukocyte Esterase Negative (NEG) Urine RBC 0 /HPF (0-2) Urine WBC Occ /HPF (0-4) Urine Squamous Epithelial Cells Occ /LPF Urine Bacteria 0 /HPF (0-FEW) Urine Hyaline Casts Occasional /HPF Urine Mucus Slight /LPF Urine Opiates Screen Neg (NEG) Urine Methadone Screen Neg (NEG) Urine Barbiturates Neg (NEG) Urine Phencyclidine Screen Neg (NEG) Urine Amphetamine/Methamphetamine Neg (NEG) Urine Benzodiazepines Screen Neg (NEG) Urine Cocaine Screen Neg (NEG) Urine Cannabinoids Screen Neg (NEG) Urine Ethyl Alcohol Pos (NEG) Laboratory Tests 09/24/18 22:10 Laboratory Tests 09/24/18 22:10 EKG EKG [] Radiology/Procedures Radiology/Procedures [] Course & Med Decision Making Course & Med Decision Making Pertinent Labs and Imaging studies reviewed. (See chart for details) [] Dragon Disclaimer Dragon Disclaimer This electronic medical record was generated, in whole or in part, using a voice recognition dictation system. Departure Departure Referrals: JUDY HOOKS MD (PCP) MOHIT RAMSEY DO Sep 25, 2018 00:25
--- NOTE | 2018-09-25 00:27 | PHYS DOC ---
Past Medical History Past Medical History: Alcoholism, Arthritis, Hypertension Additional Past Medical Histor: chronic shoulder pain Past Surgical History: No Surgical History Alcohol Use: Occasionally Drug Use: None Adult General Chief Complaint Chief Complaint: SYNCOPE HPI HPI Patient is a 58-year-old male who drinks a fair bit of whiskey daily. He states he did the same over the last 24 hours. He states he came to emergency department tonight after he passed out. He denies any chest pain shortness of breath. He denies any headache or lateralizing neurologic weakness. He states he does not recall having any symptoms prior to passing out. He states he feels like he was just tired. He doesn't think he fell but he's not sure. He states he really doesn't hurt anywhere.] Review of Systems Review of Systems Complete review of systems is unobtainable secondary to alcohol intoxication. Allergies Allergies Allergies Coded Allergies Type Severity Reaction Last Updated Verified No Known Drug Allergies 06/06/13 No Physical Exam Physical Exam Constitutional: Well developed, well nourished, no acute distress, non-toxic appearance, smells strongly of alcohol. [] HENT: Normocephalic, atraumatic, bilateral external ears normal, oropharynx moist, no oral exudates, nose normal. [] Eyes: PERRLA, EOMI, conjunctiva normal, no discharge. [] Neck: Normal range of motion, no tenderness, supple, no stridor. [] Cardiovascular:Heart rate regular rhythm, no murmur [] Lungs & Thorax: Bilateral breath sounds clear to auscultation [] Abdomen: Bowel sounds normal, soft, no tenderness, no masses, no pulsatile masses. [] Skin: Warm, dry, no erythema, no rash. [] Back: No tenderness, no CVA tenderness. [] Extremities: No tenderness, no cyanosis, no clubbing, ROM intact, no edema. [] Neurologic: Alert and oriented to person and place but not time, normal motor function, normal sensory function, no focal deficits noted. [] Psychologic: Affect normal, judgement normal, mood normal. [] Current Patient Data Vital Signs Vital Signs Date Time Temp Pulse Resp B/P (MAP) Pulse Ox O2 Delivery O2 Flow Rate FiO2 09/24/18 22:00 98.6 100 16 135/82 (99) 100 Room Air 98.6 Lab Values Laboratory Tests Test 09/24/18 22:10 09/24/18 23:00 White Blood Count 8.8 x10^3/uL (4.0-11.0) Red Blood Count 4.26 x10^6/uL (4.30-5.70) L Hemoglobin 14.5 g/dL (13.0-17.5) Hematocrit 41.1 % (39.0-53.0) Mean Corpuscular Volume 97 fL (79-100) Mean Corpuscular Hemoglobin 34 pg (25-35) Mean Corpuscular Hemoglobin Concent 35 g/dL (31-37) Red Cell Distribution Width 13.5 % (11.5-14.5) Platelet Count 259 x10^3/uL (140-400) Neutrophils (%) (Auto) 50 % (31-73) Lymphocytes (%) (Auto) 40 % (24-48) Monocytes (%) (Auto) 7 % (0-9) Eosinophils (%) (Auto) 2 % (0-3) Basophils (%) (Auto) 1 % (0-3) Neutrophils # (Auto) 4.4 x10^3uL (1.8-7.7) Lymphocytes # (Auto) 3.5 x10^3/uL (1.0-4.8) Monocytes # (Auto) 0.6 x10^3/uL (0.0-1.1) Eosinophils # (Auto) 0.2 x10^3/uL (0.0-0.7) Basophils # (Auto) 0.1 x10^3/uL (0.0-0.2) Sodium Level 141 mmol/L (136-145) Potassium Level 2.9 mmol/L (3.5-5.1) *L Chloride Level 101 mmol/L (98-107) Carbon Dioxide Level 24 mmol/L (21-32) Anion Gap 16 (6-14) H Blood Urea Nitrogen 26 mg/dL (8-26) Creatinine 1.1 mg/dL (0.7-1.3) Estimated GFR (Cockcroft-Gault) 83.8 BUN/Creatinine Ratio 24 (6-20) H Glucose Level 95 mg/dL (70-99) Calcium Level 9.0 mg/dL (8.5-10.1) Magnesium Level 2.1 mg/dL (1.8-2.4) Total Bilirubin 0.6 mg/dL (0.2-1.0) Aspartate Amino Transferase (AST) 65 U/L (15-37) H Alanine Aminotransferase (ALT) 73 U/L (16-63) H Alkaline Phosphatase 105 U/L (46-116) Troponin I Quantitative < 0.017 ng/mL (0.000-0.055) Total Protein 7.3 g/dL (6.4-8.2) Albumin 3.3 g/dL (3.4-5.0) L Albumin/Globulin Ratio 0.8 (1.0-1.7) L Ethyl Alcohol Level 352 mg/dL (0-10) H Urine Color Yellow Urine Clarity Clear Urine pH 5.5 Urine Specific [place] 1.010 Urine Protein Negative mg/dL (NEG-TRACE) Urine Glucose (UA) Negative mg/dL (NEG) Urine Ketones (Stick) Negative mg/dL (NEG) Urine Blood Negative (NEG) Urine Nitrite Negative (NEG) Urine Bilirubin Negative (NEG) Urine Urobilinogen Dipstick 0.2 mg/dL (0.2 mg/dL) Urine Leukocyte Esterase Negative (NEG) Urine RBC 0 /HPF (0-2) Urine WBC Occ /HPF (0-4) Urine Squamous Epithelial Cells Occ /LPF Urine Bacteria 0 /HPF (0-FEW) Urine Hyaline Casts Occasional /HPF Urine Mucus Slight /LPF Urine Opiates Screen Neg (NEG) Urine Methadone Screen Neg (NEG) Urine Barbiturates Neg (NEG) Urine Phencyclidine Screen Neg (NEG) Urine Amphetamine/Methamphetamine Neg (NEG) Urine Benzodiazepines Screen Neg (NEG) Urine Cocaine Screen Neg (NEG) Urine Cannabinoids Screen Neg (NEG) Urine Ethyl Alcohol Pos (NEG) Laboratory Tests 09/24/18 22:10 Laboratory Tests 09/24/18 22:10 EKG EKG [] Radiology/Procedures Radiology/Procedures [] Impressions: REASON: syncope episode PROCEDURE: CT HEAD AND CERVICAL SPINE WO CT brain without contrast, CT cervical spine without contrast. HISTORY: Syncopal episode. CT scan of brain was done without contrast. There is no intracranial hemorrhage or subdural hematoma. Ventricles are normal in size. There is no mass or shift of the midline. An acute CVA is not identified. There is no skull fracture. Sinuses are clear. IMPRESSION: 1. No intracranial hemorrhage or acute finding noted. End impression CT cervical spine Axial CT images were obtained to the cervical spine. Sagittal and coronal reconstructed images were reviewed. Thyroid is homogeneous. There is mild atelectasis or infiltrates in the right upper lobe. An acute C-spine fracture is not identified. There are degenerative changes at multiple levels. There is facet arthritis in the upper cervical spine on the right. There is spurring and disc space narrowing at C3-4, C5-6 and C6-7. IMPRESSION: 1. Degenerative changes in the cervical spine. 2. No acute fracture. 3. Right upper lobe infiltrate. Course & Med Decision Making Course & Med Decision Making Pertinent Labs and Imaging studies reviewed. (See chart for details) [ED course: Evaluation reveals a 58-year-old male with a history of alcoholism and alcohol intoxication who passed out tonight. He is awake alert and appropriate can carry on a conversation after approximately 3 hours in the emerg ency department. He does not want to stay here any longer. I've informed him that his workup thus far is really unrevealing.] Dragon Disclaimer Dragon Disclaimer This electronic medical record was generated, in whole or in part, using a voice recognition dictation system. Departure Departure Impression: Primary Impression: Alcohol intoxication Additional Impression: Syncope Disposition: 01 HOME, SELF-CARE Condition: STABLE Referrals: JUDY HOOKS MD (PCP) Patient Instructions: Alcohol Intoxication, Chronic Alcoholism, Syncope Additional Instructions: Return to the emergency department with any new or concerning symptoms Problem Qualifiers Primary Impression: Alcohol intoxication Complication of substance-induced condition: uncomplicated Qualified Codes: F10.920 - Alcohol use, unspecified with intoxication, uncomplicated Additional Impression: Syncope Syncope type: unspecified Qualified Codes: R55 - Syncope and collapse MOHIT RAMSEY DO Sep 25, 2018 00:27
--- NOTE | 2018-09-25 07:48 | EKG ---
[facility] [address] [place] [id number] Test Date: 2018-09-24 Test Time: 22:17:19 Pat Name: ERIN MARIN Department: Room: Gender: Cook Specialty: : 1960 Requested By: CHAIM SARAH Order Number: [id number] Reading MD: Measurements Intervals [place] Rate: 97 P: 49 SD: 140 QRS: -17 QRSD: 82 T: 160 QT: 362 QTc: 464 Interpretive Statements SINUS RHYTHM LEFT ATRIAL ABNORMALITY LEFTWARD AXIS CONSIDER LEFT VENTRICULAR HYPERTROPHY T ABNORMALITY IN ANTEROLATERAL LEADS INFEROLATERAL LEADS ABNORMAL ECG No previous ECG available for comparison
== END 2018-09-25 01:42 | disposition home or self-care (01) ==
LOC: ER 21:51
DX: R55 Syncope and collapse (principal); G89.29 Other chronic pain; I10 Essential (primary) hypertension
CPT/HCPCS: 36415; 70450; 71045; 72125; 80053; 80307; 81001; 83735; 84484; 85025; 93005; 99285; G0480